=== PATIENT | female | born 1955 | race Caucasian/White ===

== ENCOUNTER → 2017-08-13 11:37 | Outpatient (CLI) | payer BC, SELFPAY ==
--- NOTE | 2017-08-13 | DI.MG.S_ITS ---
BILATERAL DIGITAL SCREENING MAMMOGRAM 3D/2D WITH CAD: 08/13/2017 CLINICAL: Routine screening. Comparison is made to exams dated: 07/10/2015 mammogram, 12/30/2011 mammogram, and 10/10/2013 mammogram - [facility]. The tissue of both breasts is heterogeneously dense. This may lower the sensitivity of mammography. Current study was also evaluated with a Computer Aided Detection (CAD) system. No significant masses, calcifications, or other findings are seen in either breast. There has been no significant interval change. IMPRESSION: NEGATIVE There is no mammographic evidence of malignancy. A 1 year screening mammogram is recommended. This exam was interpreted at Station ID: [id number]. NOTE: For mammograms, a report in lay terms will be sent to the patient. Approximately 15% of breast malignancies will not be visualized mammographically. In the management of a palpable breast mass, a negative mammogram must not discourage biopsy of a clinically suspicious lesion. Electronically Signed By: Wendy cavazos/nikko:08/13/2017 12:21:00 letter sent: Normal Exam ACR BI-RADS Category 1: Negative 3341F
== END ==
PROVIDERS: Family Provider Family Medicine; PCP Family Medicine; Visit Provider Family Medicine
DX: Z12.31 Encounter for screening mammogram for malignant neoplasm of breast (principal)
CPT/HCPCS: 77063; 77067

== ENCOUNTER 2017-08-27 08:54 | Day surgery (SDC) | payer BC, SELFPAY ==
--- NOTE | 2017-08-27 | PATH_ITS ---
[facility] Accession Number: [id number] . 01 Material submitted: . COLON POLYP AT 20CM . 02 Diagnosis: Colon, Polyp at 20 cm, Biopsy: Hyperplastic polyp. [facility]/08/30/2017 . 02 Electronically signed: . Antoinette Agosto MD, Pathologist NPI- [id number] . 01 Gross description: . Received in one formalin-filled container, labeled with the patient's name, labeled colon polyp at 20 cm, are two 0.2-0.3 cm portions of tissue, entirely submitted in one cassette. ([id number]) /FRR . 02 Pathologist provided ICD-10: K63.5 . 02 CPT . 583514 Performed at: 01 [facility] [address] [id number] MD vEaristo Caldwell MD Phone: [phone] Performed at: 02 [facility] [address] [place], [place] [id number] MD Xavi Burden MD Phone: [phone]
[2017-08-27 09:19] VITALS: BP 127/78; PULSE 105; RESP 16; TEMP 36.6; O2SAT 96; BMI 26.0
[2017-08-27] MEDS: SODIUM CHLORIDE 0.9% 1,000 ML 200 ML IV (09:28)
--- NOTE | 2017-08-27 10:04 | PM.HP.1 ---
History of Present Illness Chief complaint: [id number] SCREENING COLONOSCOPY Narrative: Janet Joyce is a 62 year old female She is here for screening colonoscopy. Last exam was about 10 years ago. No history of polyps and family history colon cancer. Patient History Medical History Chronic GERD (Acute) Hypercholesterolemia (Acute) Wheezing (Chronic) Surgical History History of tonsillectomy S/P total abdominal hysterectomy and bilateral salpingo-oophorectomy Status post appendectomy Family & Social History Social History: household members none Forty pack-year history of smoking. Stopped smoking about 10 months ago. Meds Home Medications Medication Instructions Recorded Confirmed Type pravastatin 80 mg PO QDAY #90 tab 10/01/16 Rx omeprazole 40 mg PO QAM #90 cap 10/15/16 Rx albuterol sulfate [Proventil HFA] 0 INH Q4HPRN #1 inh 07/02/17 Rx lorazepam [Ativan] 1 - 2 mg PO HS #45 tab 07/02/17 Rx zolpidem [Ambien] 10 mg PO PRN #90 tab 07/02/17 Rx meloxicam 0 PO Q DAY #30 tab 07/13/17 Rx estradiol 10 mcg vaginal tablet 10 mcg VAG DIRECTED #32 tab 08/12/17 Rx Allergies Allergy/AdvReac Type Severity Reaction Status Date / Time No Known Drug Allergies Allergy Verified 08/27/17 09:29 Review of Systems Review of Systems All systems reviewed & are unremarkable except as noted in HPI and below Gastrointestinal Comments: History of diverticulosis without diverticulitis. Musculoskeletal Comments: History of arthritis Exam Vital Signs (past 8 hours): Vital Signs - 8 hr 08/27/17 09:19 Temperature 97.9 F Pulse Rate 105 H Respiratory Rate 16 Blood Pressure 127/78 H Pulse Oximetry 96 Pulse Oximetry 96 Oxygen Delivery Method Room Air Narrative Exam Narrative: Operative no apparent distress. Eyes nonicteric. Lungs are clear to auscultation without rales or rhonchi. Heart regular rate and rhythm without murmur gallop. Abdomen is soft protuberant nontender without mass. Liver and spleen not enlarged. Alert and orient x3. Assessment & Plan Plan: Plan: I have discussed the procedure and the rationale with the patient including risks of bleeding, perforation which would necessitate a major operation, failure to find remove all lesions and the potential to tattoo. They appeared to understand and wished to proceed.
--- NOTE | 2017-08-27 10:08 | P.HP_ITS ---
History of Present Illness Chief complaint: [id number] SCREENING COLONOSCOPY Narrative: Janet Joyce is a 62 year old female She is here for screening colonoscopy. Last exam was about 10 years ago. No history of polyps and family history colon cancer. Patient History Medical History Chronic GERD (Acute) Hypercholesterolemia (Acute) Wheezing (Chronic) Surgical History History of tonsillectomy S/P total abdominal hysterectomy and bilateral salpingo-oophorectomy Status post appendectomy Family & Social History Social History: household members none Forty pack-year history of smoking. Stopped smoking about 10 months ago. Meds Home Medications Medication Instructions Recorded Confirmed Type pravastatin 80 mg PO QDAY #90 tab 10/01/16 Rx omeprazole 40 mg PO QAM #90 cap 10/15/16 Rx albuterol sulfate [Proventil HFA] 0 INH Q4HPRN #1 inh 07/02/17 Rx lorazepam [Ativan] 1 - 2 mg PO HS #45 tab 07/02/17 Rx zolpidem [Ambien] 10 mg PO PRN #90 tab 07/02/17 Rx meloxicam 0 PO Q DAY #30 tab 07/13/17 Rx estradiol 10 mcg vaginal tablet 10 mcg VAG DIRECTED #32 tab 08/12/17 Rx Allergies Allergy/AdvReac Type Severity Reaction Status Date / Time No Known Drug Allergies Allergy Verified 08/27/17 09:29 Review of Systems Review of Systems All systems reviewed & are unremarkable except as noted in HPI and below Gastrointestinal Comments: History of diverticulosis without diverticulitis. Musculoskeletal Comments: History of arthritis Exam Vital Signs (past 8 hours): Vital Signs - 8 hr 3 08/27/17 09:19 Temperature 97.9 F Pulse Rate 105 H Respiratory Rate 16 Blood Pressure 127/78 H Pulse Oximetry 96 Pulse Oximetry 96 Oxygen Delivery Method Room Air Narrative Exam Narrative: Operative no apparent distress. Eyes nonicteric. Lungs are clear to auscultation without rales or rhonchi. Heart regular rate and rhythm without murmur gallop. Abdomen is soft protuberant nontender without mass. Liver and spleen not enlarged. Alert and orient x3. Assessment & Plan Plan: Plan: I have discussed the procedure and the rationale with the patient including risks of bleeding, perforation which would necessitate a major operation, failure to find remove all lesions and the potential to tattoo. They appeared to understand and wished to proceed.
--- NOTE | 2017-08-27 10:08 | PM.PREOP ---
Pre-operative Note Interval Note Pre-op Check: History & Physical exam performed today H&P completed within 30 days and has changed as indicated here:: None ASA Class (for procedural sedation): I
--- NOTE | 2017-08-27 10:12 | SUR.OPER ---
to endo from opd via cart respirations unlabored iv patent positioned per self for procedure
--- NOTE | 2017-08-27 10:40 | PM.OP.ENDO ---
Operative Date/Time/Diagnoses - Date of procedure: 08/27/17 Time of procedure: 10:40 Pre-op diagnosis: Screening examination. Last exam over 10 years ago Post-op diagnosis: same (Incomplete exam could only get to about 45 cm from the anal verge) Procedure & Clinicians Study performed: Colonoscopy converted to flexible sigmoidoscopy Same procedure as scheduled: No (Could not complete exam due to stricture and tortuosity) Indications: Screening Procedure Notes SCOAP/Timeout: Performed Procedure in detail: The patient was placed in left lateral decubitus position underwent IV sedation directed by the surgeon consisting of fentanyl Versed. Digital exam was unremarkable. The scope was inserted advanced through the rectum into the sigmoid colon. Extensive diverticula were noted and a great deal tortuosity encountered early on. Jt to point at 45 cm where not only could I no longer find a lumen but the turn to see where the colon was colon was the on the ability of the scope to make. Despite trying for about 10 min to get through this area it was clear that there was a lot of resistance and the patient was quite uncomfortable when attempting to go around this area blindly. Therefore I Tej the procedures since I could not get through it. Scope was removed slowly. There was a polyp at 20 cm which was biopsied and removed. The scope was retroflexed in the rectum. Patient was noted to have small internal hemorrhoids without ulceration. Scope withdrawal time: Not applicable Sedation minutes: 33 Findings: diverticulosis, internal hemorrhoids, polyp and stricture Specimen(s): other (Polyp) Complications: none Recommendations: Other recommendation (Consider barium enema now on in the future) Plan for aftercare: We will contact patient Follow up: as needed Disposition: PACU
[2017-08-27 10:44] VITALS: BP 118/52; PULSE 97; RESP 14; TEMP 36.1; O2SAT 95
[2017-08-27] MEDS: MIDAZOLAM 5 MG/5 ML VIAL 8 MG IV (10:44)
[2017-08-27] MEDS: fentaNYL 250 MCG/5 ML INJ 400 MCG IV (10:44)
[2017-08-27 10:47] VITALS: BP 114/74; PULSE 105; RESP 18; O2SAT 96
[2017-08-27 11:01] VITALS: BP 113/71; PULSE 83; RESP 15; TEMP 36.3; O2SAT 97
== END 2017-08-27 11:12 | disposition home or self-care (01) ==
PROVIDERS: Family Provider Family Medicine; PCP Family Medicine; Visit Provider Specialist
PROC: 0DJD8ZZ Inspection of Lower Intestinal Tract, Via Natural or Artificial Opening Endoscopic (ICD-10-PCS; CPT 45378; principal; 2017-08-27 09:45)
DX: Z12.11 Encounter for screening for malignant neoplasm of colon (principal); K56.699 Other intestinal obstruction unspecified as to partial versus complete obstruction; K64.8 Other hemorrhoids; K57.30 Diverticulosis of large intestine without perforation or abscess without bleeding; K21.9 Gastro-esophageal reflux disease without esophagitis; E78.00 Pure hypercholesterolemia, unspecified; R06.2 Wheezing; K63.5 Polyp of colon
CPT/HCPCS: 45331; 45330; 99152; 99153; J2250; J3010

== ENCOUNTER → 2017-12-02 09:30 | Outpatient (CLI) | payer BC, SELFPAY ==
[2017-12-02 10:35] LABS: Add Manual Diff / Slide Review NO; Basophils Percent Auto 0.6 % (0-2); Eosinophils Percent Auto 2.4 % (2-4); Hematocrit 42.4 % (36-46); Hemoglobin 14.6 g/dL (12.0-16.0); Lymphocytes Percent Auto 42.2 % (25-40); Mean Corpuscular HGB Conc 34.5 % (30-36); Mean Corpuscular Hemoglobin 32.9 PG (26-34); Mean Corpuscular Volume 95.3 fL (80-100); Monocytes Percent Auto 7.3 % (3-14); Neutrophils Absolute Auto 2200 /uL (3000-5900); Neutrophils Percent Auto 47.5 % (50-75); Platelet Count 265 X10^3/uL (150-400); Red Blood Cell Count 4.45 X10^6/uL (4.0-5.2); Red Cell Distribution Width 13.1 % (11.6-14.8); White Blood Cell Count 4.7 X10^3/uL (4.5-11.0)
[2017-12-02 11:07] LABS: Alanine Aminotransferase 34 IU/L (9-52); Albumin 4.5 g/dL (3.5-5.0); Albumin Globulin Ratio 1.7 (1.0-2.8); Alkaline Phosphatase 56 U/L (38-126); Aspartate Aminotransferase 32 IU/L (14-36); BUN Creatinine Ratio 34.3 (6-22); Bilirubin Total 0.6 mg/dL (0.2-1.3); Blood Urea Nitrogen 24 mg/dL (7-17); Calcium 9.6 mg/dL (8.4-10.2); Carbon Dioxide 29 mmol/L (22-32); Chloride 104 mmol/L (98-107); Cholesterol 207 mg/dL (140-199); Estimated Glomerular Filt Rate > 60.0 mL/min (>60); Globulin 2.7 g/dL (1.7-4.1); Glucose 84 mg/dL (80-110); HDL Cholesterol 71 mg/dL (40-60); HEMOLYSIS 18 (0-50); LDL Cholesterol Calculated 122 mg/dL (<100); Potassium 4.4 mmol/L (3.4-5.1); Sodium 144 mmol/L (137-145); Total Protein 7.2 g/dL (6.3-8.2); Triglycerides 69 mg/dL (35-150)
== END ==
PROVIDERS: PCP Internal Medicine; Visit Provider Internal Medicine
DX: Z00.00 Encounter for general adult medical examination without abnormal findings (principal)
CPT/HCPCS: 36415; 80053; 80061; 85025

== ENCOUNTER → 2017-12-08 10:08 | Outpatient (CLI) | payer BC, SELFPAY ==
--- NOTE | 2017-12-08 10:10 | DI.RAD.S_ITS ---
PROCEDURE: FL BARIUM ENEMA W AIR CONTRAST INDICATIONS: STRICTURE COMPARISON: [facility], , BARIUM ENEMA W AIR CONTRAST, 12/19/2007, 9:11. FINDINGS: KUB: Pre-procedural upkeep mechanic film demonstrates a normal bowel gas pattern. No suspicious abdominal calcifications. Visualized solid organ contours are normal in size. No suspicious bony lesions. Colon: There is adequate air-contrast opacification from the rectum to the cecum. No strictures, ulcers, polyps, or masses are seen. Haustral folds are normal in thickness throughout. Extensive descending and sigmoid colon diverticulosis is seen. A few scattered diverticuli also noted in ascending colon and transverse colon. IMPRESSION: Extensive diverticular disease throughout the colon particularly involving descending and sigmoid colon. No gross intraluminal filling defect, stricture or ulceration is seen in the colon. Appendix is not visualized consistent with patient's history of appendectomy Dictated by: Germán Vickers M.D. on 12/08/2017 at 12:14 Approved by: Germán Vickers M.D. on 12/08/2017 at 12:17
== END ==
PROVIDERS: PCP Internal Medicine; Visit Provider Specialist
DX: K56.699 Other intestinal obstruction unspecified as to partial versus complete obstruction (principal); K57.30 Diverticulosis of large intestine without perforation or abscess without bleeding
CPT/HCPCS: 74280

== ENCOUNTER → 2017-12-21 10:37 | Outpatient (CLI) | payer BC, SELFPAY ==
--- NOTE | 2017-12-21 10:59 | DI.CT.S_ITS ---
PROCEDURE: CT LUNG LOW DOSE SCREENING INDICATIONS: screening for lung cancer, h/o 40yr of smoking TECHNIQUE: Noncontrast 2.0-2.5 mm thick sections acquired from the pulmonary apices to the posterior costophrenic angles. 7 mm thick coronal and sagittal MIP reformats were then acquired. A low radiation dose technique was utilized. COMPARISON: [facility], , CHEST 2 VIEW, 10/02/2016, 13:32. FINDINGS: Image quality: Diagnostic, given the low radiation dose technique. Lungs and pleura: There is mild centrilobular emphysema. No pulmonary nodule, infiltrate or pleural effusion. Mediastinum: Heart size is normal. No pericardial effusion. No mediastinal adenopathy by size criteria. Thoracic aorta and central pulmonary arteries are normal in size. Esophagus is normal in caliber. No hiatal hernia. Bones and chest wall: No suspicious bony lesions. No vertebral body compression fractures. No axillary or supraclavicular adenopathy by size criteria. Thyroid gland is normal. Abdomen: Visualized upper abdomen solid organs and bowel loops appear normal in the absence of contrast. Colonic diverticula present. IMPRESSION: No suspicious pulmonary nodules. LUNG-RADS 1; followup recommendation: screening lung CT in 12 months. Dictated by: Alaina Stevenson M.D. on 12/21/2017 at 13:02 Transcribed by: SHERRI on 12/21/2017 at 13:06 Approved by: Alaina Stevenson M.D. on 12/22/2017 at 10:08
== END ==
PROVIDERS: PCP Internal Medicine; Visit Provider Internal Medicine
DX: Z12.2 Encounter for screening for malignant neoplasm of respiratory organs (principal); Z87.891 Personal history of nicotine dependence
CPT/HCPCS: 71250

== ENCOUNTER → 2019-09-26 10:21 | Outpatient (CLI) | payer MEDICARE, OTHER, SELFPAY ==
[2019-09-26 11:36] LABS: Alanine Aminotransferase 22 IU/L (<35); Albumin 4.3 g/dL (3.5-5.0); Alkaline Phosphatase 57 U/L (38-126); Aspartate Aminotransferase 30 IU/L (14-36); Bilirubin Total 0.5 mg/dL (0.2-1.3); Bilirubin Unconjugated 0.6 mg/dL (0.0-1.1); Cholesterol 213 mg/dL (140-199); Globulin 2.2 g/dL (1.7-4.1); HDL Cholesterol 72 mg/dL (40-60); HEMOLYSIS < 15 (0-50); LDL Cholesterol Calculated 119 mg/dL (<100); Total Protein 6.5 g/dL (6.3-8.2); Triglycerides 111 mg/dL (35-150)
== END ==
PROVIDERS: PCP Student in an Organized Health Care Education/Training Program; Referring Provider Student in an Organized Health Care Education/Training Program; Visit Provider Student in an Organized Health Care Education/Training Program
DX: E78.5 Hyperlipidemia, unspecified (principal); K21.9 Gastro-esophageal reflux disease without esophagitis; Z79.899 Other long term (current) drug therapy
CPT/HCPCS: 36415; 80061; 80076

== ENCOUNTER → 2021-07-07 10:36 | Outpatient (CLI) | payer MEDICARE, OTHER, SELFPAY ==
[2021-07-07 12:26] LABS: Add Manual Diff / Slide Review NO; Basophils Absolute Auto 0 /uL (0-100); Basophils Percent Auto 0.4 % (0-2); Eosinophils Absolute Auto 0 /uL (0-450); Eosinophils Percent Auto 0.7 % (2-4); Hematocrit 40.4 % (36-46); Hemoglobin 13.8 g/dL (12.0-16.0); Lymphocytes Absolute Auto 1600 /uL (1100-4500); Lymphocytes Percent Auto 29.4 % (25-40); Mean Corpuscular HGB Conc 34.1 % (30-36); Mean Corpuscular Hemoglobin 33.2 PG (26-34); Mean Corpuscular Volume 97.3 fL (80-100); Monocytes Absolute Auto 600 /uL (0-900); Monocytes Percent Auto 10.2 % (3-14); Neutrophils Absolute Auto 3300 /uL (1500-7000); Neutrophils Percent Auto 59.3 % (50-75); Platelet Count 249 X10^3/uL (150-400); Red Blood Cell Count 4.15 X10^6/uL (4.0-5.2); Red Cell Distribution Width 12.9 % (11.6-14.8); White Blood Cell Count 5.6 X10^3/uL (4.5-11.0)
[2021-07-07 13:00] LABS: Alanine Aminotransferase 15 IU/L (<35); Albumin 4.3 g/dL (3.5-5.0); Albumin Globulin Ratio 1.7 (1.0-2.8); Alkaline Phosphatase 63 U/L (38-126); Aspartate Aminotransferase 22 IU/L (14-36); BUN Creatinine Ratio 17.4 (6-22); Bilirubin Total 0.6 mg/dL (0.2-1.3); Blood Urea Nitrogen 15 mg/dL (7-17); Calcium 9.3 mg/dL (8.4-10.2); Carbon Dioxide 27 mmol/L (22-32); Chloride 107 mmol/L (98-107); Estimated Glomerular Filt Rate > 60.0 mL/min (>60); Globulin 2.6 g/dL (1.7-4.1); Glucose 97 mg/dL (80-110); HEMOLYSIS < 15 (0-50); Potassium 4.2 mmol/L (3.4-5.1); Sodium 140 mmol/L (137-145); Total Protein 6.9 g/dL (6.3-8.2)
[2021-07-07 16:07] LABS: Vitamin D 25 Hydroxy (D3) 42.5 ng/mL (30.0-100.0)
== END ==
PROVIDERS: PCP Student in an Organized Health Care Education/Training Program; Referring Provider Student in an Organized Health Care Education/Training Program; Visit Provider Student in an Organized Health Care Education/Training Program
DX: F10.21 Alcohol dependence, in remission (principal); Z79.899 Other long term (current) drug therapy; K59.01 Slow transit constipation; E55.9 Vitamin D deficiency, unspecified
CPT/HCPCS: 36415; 80053; 82306; 85025

== ENCOUNTER → 2021-07-17 15:20 | Outpatient (CLI) | payer MEDICARE, OTHER, SELFPAY ==
--- NOTE | 2021-07-17 15:22 | DI.MG.S_ITS ---
BILATERAL DIGITAL SCREENING MAMMOGRAM 3D/2D WITH CAD: 07/17/2021 CLINICAL: Routine screening. Comparison is made to exams dated: 08/13/2017 mammogram, 07/10/2015 mammogram, and 10/10/2013 mammogram - [facility]. The tissue of both breasts is heterogeneously dense. This may lower the sensitivity of mammography. Current study was also evaluated with a Computer Aided Detection (CAD) system. No significant masses, calcifications, or other findings are seen in either breast. There has been no significant interval change. IMPRESSION: NEGATIVE There is no mammographic evidence of malignancy. A 1 year screening mammogram is recommended. This exam was interpreted at Station ID: [id number]. NOTE: For mammograms, a report in lay terms will be sent to the patient. Approximately 15% of breast malignancies will not be visualized mammographically. In the management of a palpable breast mass, a negative mammogram must not discourage biopsy of a clinically suspicious lesion. Electronically Signed By: Evaristo thomas/nikko:07/18/2021 09:02:49 letter sent: Normal Exam ACR BI-RADS Category 1: Negative 3341F
== END ==
PROVIDERS: PCP Student in an Organized Health Care Education/Training Program; Referring Provider Student in an Organized Health Care Education/Training Program; Visit Provider Student in an Organized Health Care Education/Training Program
DX: Z78.0 Asymptomatic menopausal state (principal); Z12.31 Encounter for screening mammogram for malignant neoplasm of breast; Z13.820 Encounter for screening for osteoporosis; M81.0 Age-related osteoporosis without current pathological fracture
CPT/HCPCS: 77063; 77067; 77080

== ENCOUNTER → 2022-06-09 10:27 | Outpatient (CLI) | payer MEDICARE, OTHER, SELFPAY ==
[2022-06-11 18:10] LABS: Fecal Immunochemical Test Negative (Negative)
== END ==
PROVIDERS: PCP Student in an Organized Health Care Education/Training Program; Referring Provider Student in an Organized Health Care Education/Training Program; Visit Provider Student in an Organized Health Care Education/Training Program
DX: Z12.11 Encounter for screening for malignant neoplasm of colon (principal)
CPT/HCPCS: 82274

== ENCOUNTER → 2022-11-09 12:29 | Outpatient (CLI) | payer MEDICARE, OTHER, SELFPAY ==
[2022-11-09 13:19] LABS: Hemoglobin 14.1 g/dL (12.0-16.0); Mean Corpuscular HGB Conc 35.3 % (30-36); Mean Corpuscular Volume 96.2 fL (80-100); Platelet Count 228 X10^3/uL (150-400); Red Blood Cell Count 4.16 X10^6/uL (4.0-5.2); White Blood Cell Count 7.6 X10^3/uL (4.5-11.0)
[2022-11-09 13:38] LABS: Alanine Aminotransferase 24 IU/L (<35); Albumin 4.1 g/dL (3.5-5.0); Albumin Globulin Ratio 1.5 (1.0-2.8); Alkaline Phosphatase 63 U/L (38-126); Aspartate Aminotransferase 27 IU/L (14-36); BUN Creatinine Ratio 16.1 (6-22); Bilirubin Total 0.5 mg/dL (0.2-1.3); Blood Urea Nitrogen 14 mg/dL (7-17); Calcium 9.1 mg/dL (8.4-10.2); Carbon Dioxide 27 mmol/L (22-32); Chloride 108 mmol/L (98-107); Cholesterol 256 mg/dL (140-199); Estimated Glomerular Filt Rate > 60 mL/min (>60); Globulin 2.7 g/dL (1.7-4.1); Glucose 114 mg/dL (80-110); HDL Cholesterol 82 mg/dL (40-60); HEMOLYSIS < 15 (0-50); LDL Cholesterol Calculated 130 mg/dL (<100); Potassium 3.3 mmol/L (3.4-5.1); Sodium 141 mmol/L (137-145); Total Protein 6.8 g/dL (6.3-8.2); Triglycerides 218 mg/dL (35-150)
[2022-11-09 14:05] LABS: TSH w/ Reflex to FT4 1.22 uIU/mL (0.47-4.68)
== END ==
PROVIDERS: PCP Internal Medicine; Referring Provider Internal Medicine; Visit Provider Internal Medicine
DX: E78.2 Mixed hyperlipidemia (principal); M85.80 Other specified disorders of bone density and structure, unspecified site
CPT/HCPCS: 36415; 80053; 80061; 84443; 85027

== ENCOUNTER → 2023-11-02 10:43 | Outpatient (CLI) | payer MEDICARE, OTHER, SELFPAY ==
--- NOTE | 2023-11-02 | DI.MG.S_ITS ---
BILATERAL DIGITAL SCREENING MAMMOGRAM 3D/2D WITH CAD: 11/02/2023 CLINICAL: Routine screening. Comparison is made to exams dated: 07/17/2021 mammogram, 08/13/2017 mammogram, and 07/10/2015 mammogram - [facility]. Both breasts are heterogeneously dense, which may obscure small masses (category c / 51-75% glandular tissue). Current study was also evaluated with a Computer Aided Detection (CAD) system. No significant masses, calcifications, or other findings are seen in either breast. There has been no significant interval change. IMPRESSION: NEGATIVE There is no mammographic evidence of malignancy. A 1 year screening mammogram is recommended. Based on the Tyrer Cuzick model (a risk assessment model) the patient's lifetime risk is 5.1% and her 10 year risk is 3.0%. According to the ACR, ACS, and NCCN guidelines, an annual breast MRI exam along with mammogram is recommended if the patient's lifetime risk is 20% or greater. This exam was interpreted at Station ID: [id number]. NOTE: For mammograms, a report in lay terms will be sent to the patient. Approximately 15% of breast malignancies will not be visualized mammographically. In the management of a palpable breast mass, a negative mammogram must not discourage biopsy of a clinically suspicious lesion. Electronically Signed By: Karley Peterson M.D., Ph.D. alida/nikko:11/02/2023 12:36:03 letter sent: Normal Exam ACR BI-RADS Category 1: Negative 3341F
--- NOTE | 2023-11-02 10:44 | DI.RAD.S_ITS ---
PROCEDURE: XR DEXA AXIAL SKELETON INDICATIONS: osteopenia COMPARISON: [facility], CR, XR DEXA AXIAL SKELETON, 07/17/2021, 15:38. FINDINGS: Lumbar Spine: Bone mineral density 0.873 g/cm2, T score -1.6, statistically significant increased by 7.8 percent. Left Hip: Bone mineral density 0.717 g/cm2, T score -1.8, no statistically significant change compared to prior. Left Femoral Neck: Bone mineral density 0.596 g/cm2, T score -2.3. Right Hip: Bone mineral density 0.763 g/cm2, T score -1.5, no statistically significant change compared to prior. Right Femoral Neck: Bone mineral density 0.638 g/cm2, T score -1.9. Fracture Risk Calculation (when applicable): 10-year fracture risk of a major osteoporotic fracture 13 percent and of a hip fracture 2.8 percent. (T score greater or equal to -1.0 to: NORMAL) (T score from -1.1 to -2.4: OSTEOPENIA) (T score less than or equal to -2.5: OSTEOPOROSIS) IMPRESSION: Low bone mineral density (osteopenia) by WHO classification. Follow-up guidelines as follows: Osteoporosis: Consider a repeat DEXA and Vertebral Fracture Assessment (VFA) exam in 2 years or sooner if medically necessary, to reassess this patient's status. Osteopenia: Consider a repeat DEXA in 2-3 years to reassess this patient's status, or if there is a new clinical indication. Normal: Consider a repeat DEXA in 5 years or sooner, or if there is a new clinical indication. All treatment decisions require clinical judgment and consideration of individual patient factors, including patient preferences, comorbidities, previous drug use, risk factors not captured in the FRAX model (e.g., frailty, falls, vitamin D deficiency, increased bone turnover, interval significant decline in bone density ) and possible under- or over-estimation of fracture risk by FRAX. In addition, the NOF Guide recommends that FDA-approved medical therapies be considered in postmenopausal women and men age >= 50 years with a: * Hip or vertebral (clinical or morphometric) fracture * T-score of <=-2.5 at the spine or hip * Ten-year fracture probability by FRAX of >= 3% for hip fracture or >=20% for major osteoporotic fracture. People with diagnosed cases of osteoporosis or at high risk for fracture should have regular bone mineral density tests. For patients eligible for Medicare, routine testing is allowed once every 2 years. The testing frequency can be increased to one year for patients who have rapidly progressing disease, those who are receiving or discontinuing medical therapy to restore bone mass, or have additional risk factors. Dictated by: Max Bazan M.D. on 11/02/2023 at 16:17 Approved by: Max Bazan M.D. on 11/02/2023 at 16:19
== END ==
PROVIDERS: PCP Internal Medicine; Referring Provider Internal Medicine; Visit Provider Internal Medicine
DX: M85.89 Other specified disorders of bone density and structure, multiple sites (principal); Z12.31 Encounter for screening mammogram for malignant neoplasm of breast; R92.333 Mammographic heterogeneous density, bilateral breasts
CPT/HCPCS: 77063; 77067; 77080

== ENCOUNTER → 2023-11-04 11:39 | Outpatient (CLI) | payer MEDICARE, OTHER, SELFPAY ==
[2023-11-04 12:25] LABS: Aspartate Aminotransferase 20 IU/L (14-36); BUN Creatinine Ratio 15.8 (6-22); Blood Urea Nitrogen 12 mg/dL (7-17); Calcium 9.4 mg/dL (8.4-10.2); Carbon Dioxide 25 mmol/L (22-32); Chloride 108 mmol/L (98-107); Cholesterol 240 mg/dL (140-199); Estimated Glomerular Filt Rate > 60 mL/min (>60); Glucose 113 mg/dL (80-110); HDL Cholesterol 95 mg/dL (40-60); HEMOLYSIS < 15 (0-50); LDL Cholesterol Calculated 95 mg/dL (<100); Potassium 4.2 mmol/L (3.4-5.1); Sodium 141 mmol/L (137-145); Triglycerides 249 mg/dL (35-150)
== END ==
PROVIDERS: PCP Internal Medicine; Referring Provider Internal Medicine; Visit Provider Internal Medicine
DX: E78.2 Mixed hyperlipidemia (principal); M85.80 Other specified disorders of bone density and structure, unspecified site; Z87.898 Personal history of other specified conditions
CPT/HCPCS: 36415; 80048; 80061; 84450

== ENCOUNTER → 2025-03-14 11:14 | Outpatient (CLI) | payer MEDICARE, OTHER, SELFPAY ==
--- NOTE | 2025-03-14 11:15 | DI.MG.S_ITS ---
MM screening mammo BI: 03/14/2025. BI-RADS: 1 CLINICAL: 69-year old female for bilateral screening mammogram. Tyrer-Cuzick lifetime risk of 2.6%. No personal or first-degree family history of breast cancer. PRIOR EXAMS 11/02/2023, 07/17/2021, 08/13/2017, 07/10/2015. MAMMOGRAPHY TECHNIQUE: 2D and 3D (tomosynthesis) digital mammographic views obtained, with additional images as needed for full coverage. Current study was also evaluated with a Computer Aided Detection (CAD) system. DENSITY C. The breasts are heterogeneously dense, which may obscure small masses. MAMMOGRAPHY FINDINGS Bilateral: No suspicious mass, asymmetry, microcalcification, or other abnormality seen. IMPRESSION: * No evidence of malignancy. RECOMMENDATIONS Bilateral * Annual screening mammography. OVERALL ASSESSMENT CATEGORY BI-RADS-1: Negative. The [employer] recommends annual screening mammography beginning at age 40 for women with average risk of breast cancer. ELECTRONICALLY SIGNED: Inge Valdivia M.D. on 03/14/2025 at 05:59:37 PM PT Interpreting Station ID: [id number]
== END ==
LOC: MAMMO 11:15
PROVIDERS: PCP Internal Medicine; Referring Provider Internal Medicine; Visit Provider Internal Medicine
DX: Z12.31 Encounter for screening mammogram for malignant neoplasm of breast (principal); R92.333 Mammographic heterogeneous density, bilateral breasts
CPT/HCPCS: 77063; 77067